=== PATIENT | female | born 2000 | race Caucasian/White ===

== ENCOUNTER 2023-12-16 05:01 | Emergency (ER) | payer OTHER, SELFPAY ==
[2023-12-16 05:08] VITALS: BP 115/83
--- NOTE | 2023-12-16 05:58 | ED.SKININJ ---
HPI-Injury
<Anne Kaminski DO - Last Filed: 01/30/24 10:45>
General
Chief Complaint: Bite
Time Seen by Provider: 12/16/23 05:48
History of Present Illness-Injury
Initial Injury comments:
23-year-old female without significant past medical history presenting to the emergency department with concern of multiple bee stings. Patient reports yesterday she was stung by about 15 days, bilateral ears, upper back, right arm, lower back.
She was initially seen in urgent care after the event, was given Benadryl and stingers were removed. She felt a little bit better, however when she got home, started to feel nauseous and had a throbbing pain which prompted her to come to the
hospital tonight. She took Claritin without relief. Denies any feeling of throat closure or difficulty breathing. Denies any chest pain. Denies any history of allergic reactions in the past. She has never had a bee sting in the past. Denies
additional acute medical complaints
Phy Exam
<Anne Kaminski DO - Last Filed: 01/30/24 10:45>
Physical Exam
Physical Exam:
General: Well-appearing, no clinical signs of dehydration, nontoxic and in no acute distress
HEENT: protecting airway, no oropharyngeal swelling, no stridor
Neck: appears supple
CV: Normal heart rate, regular rhythm, no evidence of cyanosis
Resp: No accessory muscle use, no increased work of breathing, lungs clear to auscultation bilaterally
Abd: Soft and non-distended, no tenderness to palpation, normal bowel sounds
Extremities: No deformities, no swelling
Neuro: alert, no focal neurologic deficit
: deferred
Rectal: deferred
Psych: Normal affect
Skin: Intact, no systemic rash. Erythema and irritation to bilateral ears particularly posteriorly. Will type erythema to scattered areas of the upper back, low back, right upper extremity at the bicipital region.
Course
<Anne Kaminski DO - Last Filed: 01/30/24 10:45>
Orders/Labs/Results
Orders:
Orders
12/16/23 06:16
Ketorolac [Toradol] 15 mg IM NOW STA
Ondansetron HCl [Zofran] 4 mg PO NOW STA
Vital Signs
Initial and Last Documented VS:
Initial Vital Signs
Temp Pulse Resp BP Pulse Ox
99.0 F 105 16 115/83 100
12/16/23 05:08 12/16/23 05:08 12/16/23 05:08 12/16/23 05:08 12/16/23 05:08
Last Documented Vital Signs
Temp Pulse Resp BP Pulse Ox
99.0 F 80 16 115/78 98
12/16/23 05:08 12/16/23 06:51 12/16/23 06:51 12/16/23 06:51 12/16/23 06:51
<ST DuyenPA - Last Filed: 12/20/23 05:10>
Orders/Labs/Results
Orders:
Orders
12/16/23 06:16
Ketorolac [Toradol] 15 mg IM NOW STA
Ondansetron HCl [Zofran] 4 mg PO NOW STA
Vital Signs
Initial and Last Documented VS:
Initial Vital Signs
Temp Pulse Resp BP Pulse Ox
99.0 F 105 16 115/83 100
12/16/23 05:08 12/16/23 05:08 12/16/23 05:08 12/16/23 05:08 12/16/23 05:08
Last Documented Vital Signs
Temp Pulse Resp BP Pulse Ox
99.0 F 80 16 115/78 98
12/16/23 05:08 12/16/23 06:51 12/16/23 06:51 12/16/23 06:51 12/16/23 06:51
<Anne Kaminski, - Last Filed: 01/30/24 10:45>
MDM/Problems Addressed
MDM/Problems Addressed:
23-year-old female without past medical history presenting to the emergency department for pain and irritation after multiple bee stings. Vital signs on arrival are significant for mild tachycardia.
On exam, patient is well-appearing, nontoxic. She is in no acute respiratory distress. No clinical signs of anaphylaxis without any respiratory symptoms or GI symptoms. No systemic rash. Suspect localized reaction and discomfort from bee stings.
Patient is concerned that she will have an anaphylactic reaction from the bee stings. Did addictions counselor assistant patient that this is unlikely, however explained that I will prescribe her an EpiPen for any future bee sting, however cautioned to only use if
respiratory symptoms develop. For discomfort in the emergency department, will administer Toradol and Zofran. Otherwise feel stable for discharge with continued outpatient supportive therapy. Will prescribe Medrol Dosepak and ibuprofen. Advised
continued outpatient follow-up. Return precautions discussed and patient verbalized understanding
<Anne Kaminski DO - Last Filed: 01/30/24 10:45>
*Critical Care Note
Total Time (30-74mins, 75-104mins- exclusive of procedures): Not Applicable
ED Attending Note
<CELSA Geller - Last Filed: 12/20/23 05:10>
-
Portions of this chart may have been created with voice recognition software.� Occasional wrong word or��sound alike� substitutions may have occurred due to the inherent limitations of voice recognition software.
Discharge Plan
Departure
Patient Disposition: Home (Routine Discharge)
Date of Disposition: 12/16/23
Time of Disposition: 06:37
Patient with high blood pressure during this ER visit?: No
Condition: Good
Discharge Problem:
Bee sting reaction
Instructions: Insect Bites and Stings (DC)
Prescriptions:
No Action
Algopyrin Favio tablet
500 mg PO DAILYPRN PRN (Reason: fever)
Patient Comments:
01/25/2024: Metamizol-Natrium. Pt recieved while over in [place]
Ambroxol-Hidroklorid tablet
30 mg PO TID
Patient Comments:
01/25/2024: Pt recieved while over in [place]
doxycycline hyclate 100 mg Capsule
100 mg PO Q12 Qty: 7 0RF
benzonatate 100 mg Capsule
200 mg PO TIDPRN PRN (Reason: cough) Qty: 20 0RF
guaifenesin 600 mg Tablet Extended Release 12hr
600 mg PO Q12 Qty: 20 0RF
cefuroxime axetil 500 mg tablet
500 mg PO BID Qty: 7 0RF
Activity Restrictions/Additional Instructions:
You were seen in the emergency department for bee stings
Please follow-up closely with your primary care physician.
Return to the emergency department for any worsening of your symptoms, or any development of chest pain, difficulty breathing, abdominal pain with persistent vomiting and inability to tolerate food or liquid by mouth (concern for dehydration),
weakness, headache or confusion, fever greater than 100.4, or any additional symptoms that are concerning to you.
Thank you for choosing [facility].
Interventions
Interventions:
*Risk Screen - Suicide Last Done: 12/16/23 05:08
*General Assessment Last Done: 12/16/23 05:08
*Neglect/Abuse Screening Last Done: 12/16/23 05:08
ED- Fall Risk Assessment Last Done: 12/16/23 05:08
*ED COVID-19 Vaccine History Last Done: 12/16/23 05:08
*Nursing Disposition Last Done: 12/16/23 06:53
ED-Skin Assessment Last Done: 12/16/23 06:51
Discharge Date and Time
Discharge Date/Time: 12/16/23 06:53
Print Language: DUTCH
[2023-12-16] MEDS: TORADOL 15 MG IM (06:22)
[2023-12-16] MEDS: ZOFRAN 4 MG PO (06:23)
[2023-12-16 06:51] VITALS: BP 115/78
== END 2023-12-16 06:53 | disposition home or self-care (01) ==
LOC: EMR 05:01
PROVIDERS: EMERGENCY PHYSICIAN Student in an Organized Health Care Education/Training Program; FAMILY PHYSICIAN Nurse Practitioner Family
DX: T63.441A Toxic effect of venom of bees, accidental (unintentional), initial encounter (principal); Y92.9 Unspecified place or not applicable
CPT/HCPCS: 99282; 96372

== ENCOUNTER 2024-01-25 23:20 | Observation (INO) | payer OTHER, SELFPAY ==
[2024-01-25 19:31] VITALS: BP 110/81
[2024-01-25 19:59] LABS: % Basophils 0.2 % (0-2); % Eosinophils 1.4 % (0-6); % Immature Granulocytes 0.4 % (0-0.5); % Lymphocytes 12.1 % (20.5-51.1); % Monocytes 7.2 % (1.7-9.3); % Neutrophils 78.7 % (42.2-75.2); Absolute Eosinophils 0.1 10^3/uL (0-0.7); Absolute Lymphocytes 0.7 10^3/uL (1.2-3.4); Absolute Monocytes 0.4 10^3/uL (0.1-0.6); Absolute Neutrophils 4.5 10^3/uL (1.4-6.5); Hematocrit 31.7 % (37.0-47.0); Mean Corp Hgb Conc. 34.7 g/dL (33.0-37.0); Mean Corpuscular Hgb 29.3 pg (27.0-31.0); Mean Corpuscular Volume 84.5 fL (81.0-99.0); Mean Platelet Volume 9.3 fL (7.4-10.4); Nucleated Red Blood Cells % 0 %; Platelet Count 286 10^3/uL (130-400); Red Blood Cell Count 3.75 10^6/uL (4.20-5.40); White Blood Cell Count 5.7 10^3/uL (4.8-10.8)
[2024-01-25 20:09] LABS: HCG, Serum Qualitative Screen Negative
[2024-01-25 20:10] LABS: Urine Albumin Negative (Neg - Trace); Urine Bilirubin Negative (Negative); Urine Character Clear (Clear); Urine Color Yellow; Urine Glucose Negative (Negative); Urine Ketone Negative (Negative); Urine Leukocyte Negative (Negative); Urine Nitrite Negative (Negative); Urine Occult Blood 2+ (Negative); Urine Specific Gravity 1.015 (<1.030); Urine Urobilinogen Negative (Neg - 1+)
[2024-01-25 20:12] LABS: Lactic Acid 0.8 mmol/L (0.7-2.0)
[2024-01-25 20:16] VITALS: BMI 20.5
[2024-01-25 20:19] LABS: COVID-19 Antigen Negative (Negative)
[2024-01-25 20:20] VITALS: BP 107/68
[2024-01-25 20:20] LABS: ALT (SGPT) 113 U/L (0-35); AST (SGOT) 76 U/L (14-36); Albumin 4.3 g/dl (3.5-5.0); Alkaline Phosphatase 88 U/L (38-126); Blood Urea Nitrogen 8 mg/dl (7-17); Calcium 8.7 mg/dl (8.4-10.2); Carbon Dioxide 26 mmol/L (22-30); Chloride 99 mmol/L (98-107); Estimated Creatinine Clearance 98 ml/min; Glucose 103 mg/dl (70-99); Potassium 3.7 mmol/L (3.5-5.1); Sodium 142 mmol/L (135-145); Total Bilirubin 0.6 mg/dl (0.2-1.3); Total Protein 7.2 g/dl (6.3-8.2); eGFR > 60.00
[2024-01-25 20:26] LABS: Urine Mucus Moderate; Urine Squamous Cell >30 /LPF (Few)
[2024-01-25 20:27] LABS: Urine Bacteria Few (Negative)
--- NOTE | 2024-01-25 20:45 | ED.GENMED ---
History of Present Illness
General
Chief Complaint: Fever
Time Seen by Provider: 01/25/24 20:10
History of Present Illness
History of Present Illness:
The patient presents to the emergency department with cough and fever. Symptoms started about 10 days ago. Notes cough congestion fever lack of appetite. Was recently traveling and returned today from a trip to [place] where she went to [place] at
[facility]. Denies any bug bites or rashes. Notes that she traveled on a bus occasions. Denies abdominal pain or diarrhea. No known sick contacts. Patient was started on cefuroxime while abroad but stayed on improving her symptoms. Notes
productive cough with green mucus.
Phy Exam
Physical Exam
Physical Exam:
GENERAL APPEARANCE: NAD, well developed/ well nourished
EYES lids/conjunctiva normal
EARS/NOSE/THROAT Mucous membranes moist, uvula midline without oral pharyngeal erythema, exudate or swelling
HEAD/NECK normocephalic atraumatic, neck is supple.
RESPIRATORY respiratory effort normal, speaks in full sentences, no accessory muscle use. Lungs clear to auscultation without rhonchi, wheezes, rales
CARDIAC Regular rate and rhythm, no edema.
ABDOMINAL Soft, ND/NT. No pulsatile masses on exam, rebound tenderness,
MUSCLES/EXTREMITIES No abnormal range of motion, no swelling.
SKIN Warm, pink and dry. No rashes
NEUROLOGICAL Speech is clear and appropriate. Normal level of consciousness. 5/5 strength in all extremities.
PSYCH Normal mood and affect. Judgement/competence is appropriate
Sepsis
Sepsis Screening
Sepsis Assessment: Sepsis
Sepsis Screen
Sepsis Screen: Sepsis
Date: 01/25/24
Time: 22:55
Course
Orders/Labs/Results
Orders:
Orders
01/25/24 19:38
Electrocardiogram (*1) Urgent
Reason for Study: Other
Other Reason for Exam: Possible Sepsis
Cardiac Monitoring- Treatment ONCE
EKG- Treatment ONCE
IV Insert/Care/Rem.- Treatment PRN
Straight cath- Treatment ONCE
CR Chest - 2 Views Urgent
Comment:
Reason For Exam: suspected infection
O2 Therapy [RESP] Urgent
Titrate/Wean O2 to maintain O2 sat greater than (%): 93
Special Instructions: TO MAINTAIN CONTINUOUS O2 SATS > OR = 93%
Pulse Ox/cont/shift [RESP] Urgent
Quantity: 1
Special Instructions: CONTINUOUS
01/25/24 19:43
Test Result ONCE
01/25/24 19:44
Urinalysis Reflex To Culture Urgent
Date Specimen was Collected: 01/25/24
Time Specimen was Collected: 19:38
Urine Microscopic Reflex Cult Urgent
01/25/24 19:46
COVID-19 Antigen Urgent
Source: Nasal Swab
Influenza A+B Rapid Molecular Urgent
ANAY Source: Nasal Swab
Specimen Description:
01/25/24 19:50
Complete Blood Count/With Diff Urgent
Comprehensive Metabolic Panel Urgent
HCG, Serum Qualitative Screen Urgent
Comment: .
Lactic Acid Q4H
Comment: ON ICE, CANCEL 2ND ORDER IF FIRST LACTIC ACID LEVEL <2
Lipase Urgent
Comment: ADD ON
01/25/24 20:35
Ketorolac [Toradol] 15 mg .ROUTE .STK-MED ONE
01/25/24 20:36
Acetaminophen [Tylenol] 650 mg .ROUTE .STK-MED ONE
01/25/24 20:37
Ketorolac [Toradol] 15 mg IV NOW STA
01/25/24 20:39
Add On- LAB Urgent
Tests Added?: lipase
01/25/24 20:42
0.9% Sodium Chloride 1000 ml [Nss] 1,000 ml IV BOLUS
Ketorolac [Toradol] 15 mg IM NOW STA
01/25/24 20:47
Acetaminophen [Tylenol] 650 mg PO NOW STA
01/25/24 22:14
CefTRIAXone [Rocephin] 1,000 mg IV NOW STA
01/25/24 22:31
Doxycycline Hyclate [Vibramycin] 100 mg 0.9% Sodium Chloride 250 ml [Nss] 250 ml IV NOW
01/25/24 22:36
Blood Culture Urgent
ANAY Source: Blood/Venous
Specimen Description:
Abnormal Lab Results
01/25/24 01/25/24
19:44 19:50
RBC 3.75 L 10^6/uL
(4.20-5.40)
Hgb 11.0 L g/dL
(12.0-16.0)
Hct 31.7 L %
(37.0-47.0)
Absolute Lymphs (auto) 0.7 L 10^3/uL
(1.2-3.4)
Neutrophils % 78.7 H %
(42.2-75.2)
Lymphocytes % 12.1 L %
(20.5-51.1)
Glucose 103 H mg/dl
(70-99)
AST 76 H U/L
(14-36)
ALT 113 H U/L
(0-35)
Ur Occult Blood Reflex 2+ A
(Negative)
Urine RBC 7-10 A /HPF
(0-2)
Urine Bacteria (Reflex) Few A
(Negative)
01/25/24 19:50
01/25/24 19:50
Vital Signs
Initial and Last Documented VS:
Initial Vital Signs
Temp Pulse Resp BP Pulse Ox
100.1 F 108 20 110/81 98
01/25/24 19:31 01/25/24 19:31 01/25/24 19:31 01/25/24 19:31 01/25/24 19:31
Last Documented Vital Signs
Temp Pulse Resp BP Pulse Ox
99.0 F 86 20 99/64 95
01/25/24 22:30 01/25/24 22:30 01/25/24 22:30 01/25/24 22:00 01/25/24 22:30
*Critical Care Note
Total Time (30-74mins, 75-104mins- exclusive of procedures): Not Applicable
ED Attending Note
ED Attending Note
ED Attending Note:
Patient is very well-appearing without focal evidence of bacterial infection on exam. She is saturating 96% on room air and is in no respiratory distress. Lung sounds are clear bilaterally. Likely to be a viral infection given her travel by bus
with close contact to many other tourists. She was not in a location with concern for tropical or hemorrhagic fevers or malaria.
X-ray showing lingular pneumonia. Given failed outpatient treatment, will give IV antibiotics and admit to the hospitalist.
-
Portions of this chart may have been created with voice recognition software.� Occasional wrong word or��sound alike� substitutions may have occurred due to the inherent limitations of voice recognition software.
Discharge Plan
Departure
Patient Disposition: Admit
Date of Disposition: 01/25/24
Time of Disposition: :19
Admit to: Med/Surg
Presentation/result/management discussed w/ accepting MD/DO: Hospitalist
Discharge Problem:
Pneumonia
Prescriptions:
No Action
Algopyrin Favio tablet
500 mg PO DAILYPRN PRN (Reason: fever)
Patient Comments:
01/25/2024: Metamizol-Natrium. Pt recieved while over in [place]
Ambroxol-Hidroklorid tablet
30 mg PO TID
Patient Comments:
01/25/2024: Pt recieved while over in [place]
cefuroxime axetil 500 mg Tablet
500 mg PO BID
Patient Comments:
01/25/2024: Brand name Zinnat. Pt recieved while over in [place]
Referrals:
UNKNOWN - PT DOES,NOT KNOW [Unknown Provider] -
Interventions
Interventions:
*Risk Screen - Suicide Last Done: 01/25/24 19:31
*General Assessment Last Done: 01/25/24 19:31
ED- Fall Risk Assessment Last Done: 01/25/24 19:31
*ED COVID-19 Vaccine History Last Done: 01/25/24 19:31
ED- Neurological Assessment Last Done: 01/25/24 20:22
ED-Skin Assessment Last Done: 01/25/24 20:25
Discharge Date and Time
Print Language: SURINAMESE
[2024-01-25] MEDS: TORADOL 15 MG IV (20:47)
[2024-01-25] MEDS: TYLENOL 650 MG PO (20:48)
[2024-01-25] MEDS: NSS 1000 IV (20:49)
[2024-01-25 21:00] VITALS: BP 98/63
[2024-01-25 21:11] LABS: Lipase 84 U/L (23-300)
[2024-01-25 22:00] VITALS: BP 99/64
[2024-01-25] MEDS: ROCEPHIN 1000 MG IV (22:37)
--- NOTE | 2024-01-25 22:37 | HPS.HSE ---
Addendum entered and electronically signed by Tavo Tirado DO 01/25/24 23:40:
Patient seen and examined independently. Agree with findings and plan as set forth by Chaya Mata PA-C.
Patient is a 23y F with no significant PMH who presents to ED complaining of fever and cough x 10 days. Symptoms initially developed about 10 days ago while patient was vacationing in [facility]. She presented to the ED there and was prescribed a
Z-pack and cough medication. Her symptoms failed to improve. She returned to the ED 2 additional times while in [place] [facility] and abx were changed to cefuroxime yesterday. Patient continued to feel poorly today and took a direct flight home and
presented immediately to the ED here.
Ass:
Lingular Pneumonia
Sepsis secondary to the above
Plan:
Admit for further evaluation and treatment.
Patient presents with fever, tachycardia and tachypnea and CXR showing lingular pneumonia.
Change abx to ceftriaxone and doxycycline.
Follow for clinical improvement.
Original Note:
Family Physician
-
Family Physician: TAWANNA Manley
Chief Complaint
-
Cough and Fever
History of Present Illness
Patient is a 23 yo female presents with cough and fever. She was travelling in [place] and [facility] and just arrived back in the today. She reports that 10 days ago when she was in [place] [facility] [place] she developed a fever as her initial symptom, and the
fevers have since continued daily. A couple days after onset of fever she developed a productive cough with green mucus, as well as nausea and anorexia. She describes coughing fits where she would develop some shortness of breath from the strong
coughing, but otherwise she has not been short of breath. She took a 5-day course of azithromycin that was prescribed to her in [place] [facility] with no improvement. She then went to the ER in [facility], was given a dose of Rocephin and discharged with
cefuroxime. This is her second day of taking the cefuroxime. She denies sore throat, chest pain, palpitations, abdominal pain, vomiting, or diarrhea.
Medical History
Past Medical History
Past Medical History: Reports Other
Additional Past Medical History:
Gilbert's Syndrome
Past Surgical History: Reports None
Social History
Tobacco: Non-smoker
Alcohol: None
Drug: None
Family History
Family History: Not pertinent
Allergies / Home Medications
Allergies reflects when Allergies were last updated in [employer].
Home Medications with original date entered in [employer]
Allergy/Medication List:
Allergies
Allergy/AdvReac Type Severity Reaction Status Date / Time
No Known Allergies Allergy Verified 01/25/24 19:30
Home Medications
Algopyrin Favio 500 mg PO DAILYPRN PRN fever 01/25/24
Ambroxol-Hidroklorid 30 mg PO TID 01/25/24
cefuroxime axetil 500 mg tablet 500 mg PO BID 01/25/24
Review of Systems
-
A 12 point ROS was completed and negative except as noted: Yes
Constitutional: Reports Fever and Chills
Respiratory: Reports Cough and Trouble Breathing
Cardiac: Denies Chest Pain or Palpitations
Physical Exam
Vital Signs
Vital Signs
Temp Pulse Resp BP Pulse Ox
101.8 F H 81 18 99/64 97
01/25/24 20:18 01/25/24 22:00 01/25/24 22:00 01/25/24 22:00 01/25/24 22:00
Physical Exam
General: Comfortable and Conversant
HEENT: Anicteric and Moist mucous membranes
Respiratory: Other (Coarse breath sounds bilaterally)
Cardiac: S1/S2 and Regular Rhythm
GI: Soft and Non Tender
Rectal: Deferred by Provider
Musculoskeletal: No Clubbing, No Cyanosis and No Edema
Skin: Warm and Dry
Neuro: Awake, Alert, Oriented and Nonfocal/grossly intact
Psych: Calm
Laboratory Results
-
01/25/24 19:50
01/25/24 19:50
Laboratory Results
Lactic Acid 0.8 mmol/L (0.7-2.0) 01/25/24 19:50
Lactic Acid Cancelled 01/25/24:50
Total Bilirubin 0.6 mg/dl (0.2-1.3) 01/25/24 19:50
AST 76 U/L (14-36) H 01/25/24 19:50
ALT 113 U/L (0-35) H 01/25/24 19:50
Alkaline Phosphatase 88 U/L (38-126) 01/25/24 19:50
Lipase 84 U/L (23-300) 01/25/24 19:50
Data Reviewed
-
Diagnostic Radiology: Report Reviewed by me
Lab Data: Labs Reviewed by me
Impression/Plan
-
Pneumonia, community-acquired
-Failed outpatient azithromycin
-Continue ceftriaxone and doxycycline
-Continue Mucinex
DVT proph: Lovenox
Code Status: Full Code
[2024-01-25] MEDS: VIBRAMYCIN 260 MG IV (22:46)
[2024-01-26 00:27] VITALS: BP 91/56; BMI 20.7
[2024-01-26] MEDS: STERILE WATER FOR INJECTION IV (01:01)
[2024-01-26] MEDS: NSS 1000 IV ×3 (01:02→20:26)
[2024-01-26] MEDS: TESSALON PERLES 200 MG PO ×2 (01:03→05:07)
--- NOTE | 2024-01-26 05:03 | PTCARENOTE ---
ax3 bp wnl temp 99.9- Tylenol given see mar- fluids running- sputum and urines sent- 95% on room air- lungs are clear- harsh cough with pleuritic chest pain
[2024-01-26] MEDS: TYLENOL 650 MG PO ×2 (05:04→14:19)
[2024-01-26 05:35] VITALS: BMI 20.7
[2024-01-26 06:00] VITALS: BMI 20.7
[2024-01-26 06:23] LABS: Hemoglobin 9.6 g/dL (12.0-16.0); Mean Corp Hgb Conc. 34.3 g/dL (33.0-37.0); Mean Corpuscular Volume 84.6 fL (81.0-99.0); Mean Platelet Volume 9.8 fL (7.4-10.4); Platelet Count 241 10^3/uL (130-400); Red Blood Cell Count 3.31 10^6/uL (4.20-5.40); White Blood Cell Count 4.4 10^3/uL (4.8-10.8)
[2024-01-26 07:30] VITALS: BP 97/60
[2024-01-26 08:04] LABS: % Basophils 0.2 % (0-2); % Eosinophils 2.8 % (0-6); % Immature Granulocytes 0.7 % (0-0.5); % Lymphocytes 17.9 % (20.5-51.1); % Monocytes 7.4 % (1.7-9.3); Absolute Eosinophils 0.1 10^3/uL (0-0.7); Absolute Lymphocytes 0.8 10^3/uL (1.2-3.4); Absolute Monocytes 0.3 10^3/uL (0.1-0.6); Absolute Neutrophils 3.1 10^3/uL (1.4-6.5); Nucleated Red Blood Cells % 0 %
[2024-01-26] MEDS: MUCINEX 600 MG PO ×2 (08:05→20:26)
[2024-01-26] MEDS: VIBRAMYCIN 260 MG IV (09:18)
--- NOTE | 2024-01-26 10:19 | W.PN.HOSP.TC ---
Today's Communication/Plan
-
CT chest
Change to IV doxy
Add IV PRN Zofran
Sputum culture
Consult ID
Assessment / Plan
Assessment / Plan
Physical Exam
General: Comfortable and Conversant
HEENT: Anicteric and Moist mucous membranes
Respiratory: Other (Coarse breath sounds bilaterally)
Cardiac: S1/S2 and Regular Rhythm
GI: Soft and Non Tender
Musculoskeletal: No Clubbing, No Cyanosis and No Edema
Skin: Warm and Dry
Neuro: Awake, Alert, Oriented and Nonfocal/grossly intact
Psych: Calm
Pneumonia, community-acquired
-Failed outpatient azithromycin
she does not feels better, still cough
-Continue ceftriaxone and doxycycline, change to IV doxy because she has nausea
-Continue Mucinex
- consult ID, appreciate input
-Order CT chest due to persistent symptoms
# Elevated liver enzymes will recheck lFT in AM
No jaundice
# Loss of appetite, nausea
Add PRN Zofran
DVT proph: Lovenox
Code Status: Full Code
Total time spent to see the patient, examine the patient on the floor, review data and lab results, discuss treatment plan with patient, nursing staff around 55 minutes
Anticipated Discharge: > 48 hours
Subjective/Interval History
-
Date of Service: January 26, 2024
Still cough but not worse
No sob
No fevers
Objective Data
-
Labs:
Laboratory Results
01/26/24
05:54
WBC 4.4 L
Hgb 9.6 L
Hct 28.0 L
Plt Count 241
Vital Signs:
Vital Signs
Temp Pulse Resp BP Pulse Ox
98.5 F 76 19 97/60 98
01/26/24 07:30 01/26/24 07:30 01/26/24 07:30 01/26/24 07:30 01/26/24 07:30
I&O
01/25/24 01/26/24 01/27/24
06:59 06:59 06:59
Intake Total 1160 / 1160
Output Total 500 / 500
Balance 660 / 660
--- NOTE | 2024-01-26 12:04 | CON.PUL ---
Consultation
Consultation Request
Date/Time Consultation Requested: 01/26/2024 - 1136
Date/Time Consultation Performed: 01/26/2024 - 1201
Requesting Provider: Dr. Samuels
Performing Provider: Dr. Hernandez
Reason for Consultation: Pneumonia/Abnormal CT chest
Medical History
-
Chief Complaint: Cough + fever
History of Present Illness:
23-year-old female non-smoker with a past medical history of scoliosis + Gilbert's syndrome who presents with cough + fever. She had just returned from a trip to [facility] and [place] the [place] on the day of hospital admission. She was traveling to
[facility] as well. 10 days ago when she was in [facility] she developed a fever, and then cough started a few days later with green mucus production. Also nauseous with reduced appetite. She admits having coughing fits but otherwise is not short of
breath. She was prescribed a 5-day course of Zithromax while she was in [facility] with no improvement. She actually went to the ER and hungry and given a dose of Rocephin and discharged with cefuroxime. She was on her second day of cefuroxime when
she came here to [facility]. She denies sore throat, chest pain, vomiting or abdominal pain. In the ER she was afebrile to 100.1 �F, tachycardic to 108, breathing at 20 breaths/min, BP 110/81 and saturating 98% on room air. Labs showed
normal WBC at 5.7, Hb 11, lactate normal at 0.8, AST 76, ALT 113, beta-hCG negative, lipase normal at 84, and urinalysis negative for UTI. She was also COVID-19 negative, as well as flu A/B-. CXR showed moderate lingular pneumonia which was
confirmed on CT chest from today which also showed patchy opacities in the left lower lobe. There was a trace left-sided pleural effusion. Otherwise no pericardial effusion in the right lung appear clear. In the ER she was given Rocephin,
doxycycline, Tylenol + IVF with NS 0.9% x 1L; she was admitted to the floor for continued care. Pulmonary now consulted for additional management/recommendations.
When I saw the patient she was resting in bed in no acute distress on room air. She is still coughing up green phlegm. No blood seen in cough. Also still short of breath and reduced appetite. She denies chest pain, MONTES, abdominal pain, fevers or
chills.
PMHx: Scoliosis, Gilbert's syndrome
PSHx: Noncontributory
Past Medical History
Past Medical History: Other (Above as per HPI)
Past Surgical History: Other (Above as per HPI)
Social History
Tobacco: Non-smoker
Alcohol: Occasional (Rare)
Drug: None
Employment: Employed
Family History
Family History: Diabetes (Maternal grandmother)
Allergies / Home Medications
Allergies
Allergy/AdvReac Type Severity Reaction Status Date / Time
No Known Allergies Allergy Verified 01/25/24 19:30
Home Medications
�Medication �Instructions �Recorded �Confirmed �Last Taken �Type
Algopyrin Favio 500 mg PO DAILYPRN PRN fever 01/25/24 01/25/24 Unknown History
Ambroxol-Hidroklorid 30 mg PO TID Cough 01/25/24 01/25/24 Unknown History
cefuroxime axetil 500 mg tablet 500 mg PO BID Infection 01/25/24 01/25/24 Unknown History
Review of Systems
-
History Source: Patient
All other systems: Negative unless noted
Vitals / Labs / Diagnostic Testing
Vital Signs
Temp Pulse Resp BP Pulse Ox
99.1 F 76 19 97/60 98
01/26/24 11:30 01/26/24 07:30 01/26/24 07:30 01/26/24 07:30 01/26/24 07:30
Lab Data
01/26/24 05:54
01/25/24 19:50
Microbiology
01/26/24 00:46 Sputum Gram Stain - Preliminary
01/25/24 19:44 Urine Legionella Urinary Antigen - Final
Negative for Legionella pneumophila Serogroup 1 antigen.
A negative result does not rule out the possiblity of
Legionella infection due to other serogroups or species of
Legionella. Clinical correlation is recommended.
01/25/24 19:44 Urine Streptococcus pneumoniae Antigen (M - Final
Negative for Streptococcus pneumoniae antigen.
A negative result does not exclude infection with
Streptococcus pneumoniae. Clinical correlation is
recommended.
01/25/24 19:46 Nasal Swab Influenza Types A & B (JETHRO) - Final
Negative for Influenza A & B, NAAT
Negative results must be combined with clinical observations
and patient history.
Nucleic Acid Amplification test (NAAT)performed on the
[employer] platform.
Diagnostic Testing:
Physical Exam
-
HEENT: Normocephalic and Anicteric
Cardiovascular: S1/S2 and Peripheral Edema (negative)
Respiratory: Wheeze (negative), Rales ([place] in the posterior left midlung region), Rhonchi (negative) and Non-Labored Respirations
GI: Soft, Non Distended, Non Tender and Normal Bowel Sounds
Neurology: AO x 3 and Tremors (negative)
Skin: Warm and Dry
General: Respiratory Distress (negative), Comfortable, Fever (negative) and Chills (negative)
Assessment
-
Assessment: 23-year-old female non-smoker with a PMHx of scoliosis + Gilbert's syndrome who presents with cough + fever. She developed symptoms while overseas in [facility], with symptoms started about 10 days ago with fever and then cough with green
phlegm production. She went to an ER in [facility] and was given antibiotics and discharged home with cefuroxime which she was on her second day when she arrived here to [place]. She has been afebrile here since hospital admission and imaging is
consistent with a lingular pneumonia as well as patchy opacities in the left lower lobe. She is being managed on the floor on antibiotics and now pulmonary consulted for additional recommendations.
Chronic conditions [employer]: Scoliosis, Gilbert's syndrome
Impression:
#Community-acquired pneumonia involving left lung (lingula + medial left lower lobe)
#Acute cough due to above
#Acute anemia
#Transaminitis with AST: 76 + ALT: 113
Plan:
- Continue with broad-spectrum antibiotics and plan for at least 7 days assuming she continues to clinically improve and remains afebrile for 2 days prior to stopping antibiotics
- Currently on Rocephin + doxycycline (both started 01/25/2024)
- Mucolytics with Mucinex
- She will need repeat CT chest in 4-6 weeks to follow-up pneumonia resolution
- Follow-up infectious workup including blood + sputum cultures (NGTD)
- Urine antigens for Legionella + strep pneumonia were both negative
- Currently on IVF maintenance fluids with NS 0.9% @ 100cc/hr --> DC this once she is tolerating PO diet and eating >50% of meals
- Maintain SpO2 >90-94% with supplemental O2 as needed
- Incentive spirometer encouraged
- Monitor Hb and transfuse if needed to keep Hb>7, plt>20k
- Trend LFTs
- Replete electrolytes with K>4, Mg>2
- Maintain euglycemia with goal BG >100 and <180
- prn nebulized bronchodilators - not currently bronchospastic
- DVT ppx: LMWH
Pulmonary service will continue to follow along. Outpatient office follow-up will also be arranged.
Data:
CT chest without contrast 01/26/2024: Findings compatible with pneumonia involving the lingula of the left upper lobe and the left lower lobe; Minimal left pleural effusion.
Total time spent today was 55 minutes for this encounter. Time includes reviewing laboratory test/imaging results, reviewing pertinent medical records, obtaining and reviewing medical history, performing an appropriate exam, ordering medications,
tests and procedures. Time also includes documentation of this encounter, coordinating patient care and communicating with other healthcare professionals. Total time does not include separately billed tests performed on this date of service.
--- NOTE | 2024-01-26 13:21 | CON.ID ---
Consultation
-
Date/Time Consultation Requested: 01/26/2024 0647
Date/Time Consultation Performed: 01/26/2024 1316
Requesting Provider: Dr. Samuels
Performing Provider: Dr. Greenberg
Reason for Consultation: Pneumonia
Chief Complaint / Past History
History of Present Illness
June Kirby is a 23-year-old female being evaluated at the request of Dr. Samuels in regards to pneumonia. History is obtained from chart review, along with patient interview.
The patient has a past medical history significant only for Gilberet's syndrome. She reports she was in her usual state of health, and travel to [place] on January 06 to visit family. She was in [place] until 01/11, at which time she took a an
18-hour bus ride to [facility] to also visit family. The first 2 days and hungry were spent with significant physical activity, which included hiking. On approximately third day of her visit, she developed a fever. She saw a physician there and was
started on Azithromycin. Despite several days of antibiotic she continued to feel unwell, with temperatures up to 101 degrees. She again was seen by a physician and at this point was transitioned to cefuroxime. Thereafter, she developed a cough.
Despite antibiotic therapy she continued to feel unwell and traveled back to the [place] yesterday at which point she came to the hospital for further evaluation.
She notes green sputum. She denies any chest pain but does admit to shortness of breath. She notes only 1 episode of vomiting, but has had some occasional nausea and poor appetite. She notes intermittent coughing fits. She denies any headache.
She notes no sick contacts.
Past History
Additional Past Medical History:
Gilberet's syndrome
Past Surgical History: None
Allergy History:
No Known Allergies Allergy (Verified 01/25/24 19:30)
Medications Reviewed: Yes
Current Antibiotics:
Ceftriaxone 1 g IV every 24 hours
Doxycycline 100 mg IV every 12 hours
Social History
Tobacco: Non-Smoker
Alcohol: None
Drug: None
Personal: Single
Living: With Family
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
Family History
Family History: Not Pertinent
Review of Systems
Vital Signs
Temp Pulse Resp BP Pulse Ox
100.2 F 76 19 97/60 99
01/26/24 12:34 01/26/24 07:30 01/26/24 07:30 01/26/24 07:30 01/26/24 12:34
Physical Exam
Physical Exam
Constitutional: No Acute Distress, Well Developed, Comfortable and Non-toxic
Head: Normocephalic
Eyes: Pupils Equal, Pupils Round, No Conjunctival Hemorrhage and Sclera Anicteric
Oral: No Thrush and No Ulcers
Cardiovascular: Regular Rate and S1/S2; Negative S3/S4 or Murmur
Pulmonary: Clear; Negative Wheezes or Rales
Gastrointestinal: Soft, Non Tender, Non Distended and Normal Bowel Sounds
Genito-Urinary: Negative Nagel or CVA Tenderness
Extremities: Negative Edema, Cyanosis, Erythema, Splinter Hemorrhage or Venous Insufficiency
Musculoskeletal: Negative Joint Swelling or Joint Effusion
Skin: Warm and Dry; Negative Rash or Jaundice
Neurological: Awake and Alert
Psychological: Calm
.
Lab / Diagnostic Study Results
01/26/24 05:54
01/25/24 19:50
Abs Immat Gran (auto) 0.0 10^3/uL (0-0.05) 01/26/24 05:54
Absolute Neuts (auto) 3.1 10^3/uL (1.4-6.5) 01/26/24 05:54
Absolute Lymphs (auto) 0.8 10^3/uL (1.2-3.4) L 01/26/24 05:54
Absolute Monos (auto) 0.3 10^3/uL (0.1-0.6) 01/26/24 05:54
Absolute Basos (auto) 0.0 10^3/uL (0-0.2) 01/26/24 05:54
Immature Gran % 0.7 % (0-0.5) H 01/26/24 05:54
Neutrophils % 71.0 % (42.2-75.2) 01/26/24 05:54
Lymphocytes % 17.9 % (20.5-51.1) L 01/26/24 05:54
Monocytes % 7.4 % (1.7-9.3) 01/26/24 05:54
Eosinophils % 2.8 % (0-6) 01/26/24 05:54
Basophils % 0.2 % (0-2) 01/26/24 05:54
Lactic Acid 0.8 mmol/L (0.7-2.0) 01/25/24 19:50
Lactic Acid Cancelled 01/25/24 19:50
Ur Squamous Epith Cells >30 /LPF (Few) 01/25/24 19:44
Microbiology Results
Micro:
01/26/24 00:46 Respiratory Culture - Pending
Sputum Gram Stain - Preliminary
01/25/24 19:44 Legionella Urinary Antigen - Final
Urine Negative for Legionella pneumophila Serogroup 1 antigen.
A negative result does not rule out the possiblity of
Legionella infection due to other serogroups or species of
Legionella. Clinical correlation is recommended.
Streptococcus pneumoniae Antigen (M - Final
Negative for Streptococcus pneumoniae antigen.
A negative result does not exclude infection with
Streptococcus pneumoniae. Clinical correlation is
recommended.
01/25/24 22:36 Blood Culture - Pending
Blood/Venous
01/25/24 19:46 Influenza Types A & B (JETHRO) - Final
Nasal Swab Negative for Influenza A & B, NAAT
Negative results must be combined with clinical observations
and patient history.
Nucleic Acid Amplification test (NAAT)performed on the
[employer] platform.
Imaging:
01/26/2024 CT chest without contrast: There is confluent parenchymal airspace opacity within the lingula of the left upper lobe, with air bronchograms. Additional patchy parenchymal opacities slightly more superiorly within the left upper lobe.
Minimal posterior left pleural effusion noted. Right lung appears clear. No pericardial effusion. Please see full dictation for additional detail.
01/25/2024 CXR (2 view): Moderate lingular pneumonia noted. Please see full dictation for additional detail.
Assessment / Plan
Left lingular pneumonia
Fever
Recommendations:
Continue with ceftriaxone and doxycycline. Doxycycline can be transition to the oral route.
Sputum culture has been obtained, and currently awaiting results.
Monitor white count and temperature curve.
Further recommendations as additional data is returned.
[2024-01-26 16:00] VITALS: BP 103/61
--- NOTE | 2024-01-26 16:04 | CM ---
Reviewed chart, met with patient and her mother who was at bedside to obtain information for assessment. Patient stated that she lives with her mother in a two story townhouse with 2 steps to enter. Patient stated that she is independent with all of
her ADLs, personal care, dressing and bathing. 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 She drives and can get to her appointments and do all of her shopping.
Patient has never had VN services.
She has no DME.
She has never been to a SNF.
Patient has a prescription plan and uses, [facility] for all of her medications.
Patient's PCP is, Teodoro Russell.
Patient stated that she would like to return home when stable.
Plan: Case management will continue to follow and assist with discharge planning. Home with mother.
OBS letter signed and reviewed.
[2024-01-26] MEDS: LOVENOX 40 MG SC (17:31)
[2024-01-26] MEDS: VIBRAMYCIN 100 MG PO (20:26)
[2024-01-26] MEDS: ROCEPHIN 1000 MG IV (21:13)
[2024-01-26] MEDS: STERILE WATER FOR INJECTION 10 ML IV (21:13)
[2024-01-26 23:00] VITALS: BP 110/63
[2024-01-27] MEDS: NSS 1000 IV ×2 (05:57→15:36)
[2024-01-27 07:00] VITALS: BP 116/61
[2024-01-27 07:22] LABS: Hematocrit 31.3 % (37.0-47.0); Hemoglobin 10.8 g/dL (12.0-16.0); Mean Corp Hgb Conc. 34.5 g/dL (33.0-37.0); Mean Corpuscular Hgb 30.3 pg (27.0-31.0); Mean Corpuscular Volume 87.7 fL (81.0-99.0); Mean Platelet Volume 9.3 fL (7.4-10.4); Platelet Count 302 10^3/uL (130-400); Red Blood Cell Count 3.57 10^6/uL (4.20-5.40); Red Cell Dist. Width 11.9 % (11.5-14.5); White Blood Cell Count 3.4 10^3/uL (4.8-10.8)
[2024-01-27 07:24] LABS: ALT (SGPT) 73 U/L (0-35); AST (SGOT) 46 U/L (14-36); Albumin 3.4 g/dl (3.5-5.0); Alkaline Phosphatase 80 U/L (38-126); Blood Urea Nitrogen 6 mg/dl (7-17); Calcium 8.9 mg/dl (8.4-10.2); Carbon Dioxide 26 mmol/L (22-30); Chloride 103 mmol/L (98-107); Direct Bilirubin 0.2 mg/dl (0.0-0.4); Estimated Creatinine Clearance 113 ml/min; Glucose 94 mg/dl (70-99); Magnesium 1.9 mg/dl (1.6-2.3); Phosphorus 3.5 mg/dl (2.5-4.5); Potassium 4.4 mmol/L (3.5-5.1); Sodium 140 mmol/L (135-145); Total Bilirubin 0.4 mg/dl (0.2-1.3); eGFR > 60.00
[2024-01-27] MEDS: VIBRAMYCIN 100 MG PO ×2 (07:52→22:15)
[2024-01-27] MEDS: MUCINEX 600 MG PO ×2 (07:52→22:15)
--- NOTE | 2024-01-27 09:51 | W.PN.HOSP.TC ---
Today's Communication/Plan
-
c/w Rocephin and doxycycline
f/w sputum culture
PRN cough medicine
PRN Tylenol
Assessment / Plan
Assessment / Plan
Physical Exam
General: Comfortable and Conversant
HEENT: Anicteric and Moist mucous membranes
Respiratory: no wheezes or crackles, more air both sides.
Cardiac: S1/S2 and Regular Rhythm
GI: Soft and Non Tender
Musculoskeletal: No Clubbing, No Cyanosis and No Edema
Skin: Warm and Dry
Neuro: Awake, Alert, Oriented and Nonfocal/grossly intact
Psych: Calm
Pneumonia, community-acquired
-Failed outpatient azithromycin
- sputum culture gram positive cocci
blood culture no growth
CT chest c/w pneumonia in the lingula of the left upper lobe and the left lower lobe, small pleural effusion
-Continue ceftriaxone and doxycycline, change to IV doxy because she has nausea
-Continue Mucinex
- consulted pulmonary and ID, appreciate input
# Elevated liver enzymes
LFT are coming down
No jaundice
# Loss of appetite, nausea
Added PRN Zofran
DVT proph: Lovenox
Code Status: Full Code
Total time spent to see the patient, examine the patient on the floor, review data and lab results, discuss treatment plan with patient, consultants, nursing staff around 55 minutes
Anticipated Discharge: 24 - 48 hours
Subjective/Interval History
-
Date of Service: January 27, 2024
She feel betters
less fevers
Objective Data
-
Labs:
Laboratory Results
01/27/24
06:42
WBC 3.4 L
Hgb 10.8 L
Hct 31.3 L
Plt Count 302 D
Sodium 140
Potassium 4.4
Chloride 103
Carbon Dioxide 26
BUN 6 L
Creatinine 0.7
Glucose 94
Calcium 8.9
Total Bilirubin 0.4
AST 46 H
ALT 73 H
Alkaline Phosphatase 80
Vital Signs:
Vital Signs
Temp Pulse Resp BP Pulse Ox
98.9 F 66 18 116/61 98
01/27/24 07:00 01/27/24 07:00 01/27/24 07:00 01/27/24 07:00 01/27/24 07:00
I&O
01/26/24 01/27/24 01/28/24
06:59 06:59 06:59
Intake Total 1160 / 1160 3900 / 3900
Output Total 500 / 500
Balance 660 / 660 3900 / 3900
--- NOTE | 2024-01-27 10:53 | W.PN.PUL.V3 ---
Today's Communication / Plan
-
Antibiotics
Increase activity
Supplemental oxygen as needed
Mucolytic's
Outpatient pulmonary follow-up
Assessment
-
Assessment: 23-year-old female non-smoker with a PMHx of scoliosis + Gilbert's syndrome who presents with cough + fever. She developed symptoms while overseas in [facility], with symptoms started about 10 days ago with fever and then cough with green
phlegm production. She went to an ER in [facility] and was given antibiotics and discharged home with cefuroxime which she was on her second day when she arrived here to [place]. She has been afebrile here since hospital admission and imaging is
consistent with a lingular pneumonia as well as patchy opacities in the left lower lobe. She is being managed on the floor on antibiotics and now pulmonary consulted for additional recommendations.
Chronic conditions [employer]: Scoliosis, Gilbert's syndrome
Impression:
#Community-acquired pneumonia involving left lung (lingula + medial left lower lobe)
#Acute cough due to above
#Acute anemia
#Transaminitis with AST: 76 + ALT: 113
Leukopenia
Plan:
Respiratory status relatively stable
Supplemental oxygen as needed-currently on room air
Nebulizers if needed-currently not bronchospastic
Chest x-ray and CT chest reviewed-consistent with community-acquired pneumonia
Mucolytic's
Antitussives if needed
Cultures reviewed
Urine streptococcal and Legionella antigens negative
Sputum culture-moderate WBCs, few gram-positive cocci and rare gram-positive cocci
Empiric antibiotics
Follow chest x-ray
Monitor leukopenia
Follow hemoglobin
Monitor LFTs
DVT prophylaxis-low molecular weight heparin
Nutrition
Early mobilization
Outpatient pulmonary [id number] need CT chest for-6 weeks to ensure pneumonia resolution
Data:
CT chest without contrast 01/26/2024: Findings compatible with pneumonia involving the lingula of the left upper lobe and the left lower lobe; Minimal left pleural effusion.
Subjective Data
-
Date of Service:
Date of Service: January 27, 2024
Chief Complaint: Pulmonary Follow Up and Dyspnea Follow Up
Subjective:
No complaints of worsening shortness of breath, no chest congestion, minimal cough, mildly yellow, no chest pain, hemoptysis or abdominal pain
Review of Systems
General: Other (Per HPI)
Objective Data
Data Reviewed
Vital Signs / I&O:
Vital Signs
Temp Pulse Resp BP Pulse Ox
98.9 F 66 18 116/61 98
01/27/24 07:00 01/27/24 07:00 01/27/24 07:00 01/27/24 07:00 01/27/24 07:00
Intake and Output
01/26/24 01/27/24 01/28/24
06:59 06:59 06:59
Intake Total 1160 / 1160 3900 / 3900
Output Total 500 / 500
Balance 660 / 660 3900 / 3900
SaO2: 98
Physical Exam
General: Respiratory Distress (n) and Comfortable
HEENT: Normocephalic, Anicteric and Moist Mucous Membranes
Cardiovascular: Regular Rhythm
Respiratory: Wheeze (n), Crackles, Rhonchi (n), Non-Labored Respirations, Accessory Resp Muscle Use (n) and Stridor (n)
GI: Soft, Non Distended and Non Tender
Neurology: Awake, Alert and No Motor Deficits
Skin: Warm, Good Color, Cyanosis, Jaundice (n) and Rash
Labs/Micro/Reports
Lab Data
01/27/24 06:42
01/27/24 06:42
Microbiology
01/25/24 22:36 Blood/Venous Blood Culture - Preliminary
No Growth in 24 hours- Final report to follow
01/26/24 18:33 Sputum Gram Stain - Preliminary
01/26/24 00:46 Sputum Gram Stain - Preliminary
01/25/24 19:44 Urine Legionella Urinary Antigen - Final
Negative for Legionella pneumophila Serogroup 1 antigen.
A negative result does not rule out the possiblity of
Legionella infection due to other serogroups or species of
Legionella. Clinical correlation is recommended.
01/25/24 19:44 Urine Streptococcus pneumoniae Antigen (M - Final
Negative for Streptococcus pneumoniae antigen.
A negative result does not exclude infection with
Streptococcus pneumoniae. Clinical correlation is
recommended.
01/25/24 19:46 Nasal Swab Influenza Types A & B (JETHRO) - Final
Negative for Influenza A & B, NAAT
Negative results must be combined with clinical observations
and patient history.
Nucleic Acid Amplification test (NAAT)performed on the
[employer] platform.
--- NOTE | 2024-01-27 12:16 | W.PN.ID1 ---
Date of Service
Date of Service: January 27, 2024
Today's Communication
At time of discharge, transition to cefuroxime 500mg po bid and doxycycline 100mg po bid through 01/31/24.
Assessment / Plan
Left lingular pneumonia
Fever- resolving
Recommendations:
Continue with ceftriaxone and po doxycycline.
Sputum cultures usual respiratory ainsley
Monitor white count and temperature curve.
At time of discharge, transition to cefuroxime 500mg po bid and doxycycline 100mg po bid through 01/31/24.
Chief Complaint
-: Pneumonia
Subjective / Review of Systems
Not as SOB. + productive cough.
Vital Signs / Physical Exam
Vital Signs
Vital Signs
Temp Pulse Resp BP Pulse Ox
98.7 F 66 18 116/61 98
01/27/24 11:00 01/27/24 07:00 01/27/24 07:00 01/27/24 07:00 01/27/24 10:57
Physical Exam
Constitutional: No Acute Distress and Comfortable
Cardiovascular: Regular Rate and S1/S2
Pulmonary: Negative Wheezes, Rales or Coarse
Gastrointestinal: Soft, Non Tender and Non Distended
Objective Data
Lab Data
Lab Results
01/27/24 06:42
01/27/24 06:42
Estimated Creat Clear 113 ml/min 01/27/24 06:42
Lactic Acid 0.8 mmol/L (0.7-2.0) 01/25/24 19:50
Lactic Acid Cancelled 01/25/24 19:50
Total Bilirubin 0.4 mg/dl (0.2-1.3) 01/27/24 06:42
AST 46 U/L (14-36) H 01/27/24 06:42
ALT 73 U/L (0-35) H 01/27/24 06:42
Alkaline Phosphatase 80 U/L (38-126) 01/27/24 06:42
Most recent labs reviewed.
Micro Results:
01/26/24 18:33 Respiratory Culture - Preliminary
Sputum Usual Respiratory Ainsley
Gram Stain - Preliminary
01/26/24 00:46 Respiratory Culture - Preliminary
Sputum Usual Respiratory Ainsley
Gram Stain - Preliminary
01/25/24 22:36 Blood Culture - Preliminary
Blood/Venous No Growth in 24 hours- Final report to follow
01/25/24 19:44 Legionella Urinary Antigen - Final
Urine Negative for Legionella pneumophila Serogroup 1 antigen.
A negative result does not rule out the possiblity of
Legionella infection due to other serogroups or species of
Legionella. Clinical correlation is recommended.
Streptococcus pneumoniae Antigen (M - Final
Negative for Streptococcus pneumoniae antigen.
A negative result does not exclude infection with
Streptococcus pneumoniae. Clinical correlation is
recommended.
01/25/24 19:46 Influenza Types A & B (JETHRO) - Final
Nasal Swab Negative for Influenza A & B, NAAT
Negative results must be combined with clinical observations
and patient history.
Nucleic Acid Amplification test (NAAT)performed on the
[employer] platform.
Imaging:
01/26/2024 CT chest without contrast: There is confluent parenchymal airspace opacity within the lingula of the left upper lobe, with air bronchograms. Additional patchy parenchymal opacities slightly more superiorly within the left upper lobe.
Minimal posterior left pleural effusion noted. Right lung appears clear. No pericardial effusion. Please see full dictation for additional detail.
01/25/2024 CXR (2 view): Moderate lingular pneumonia noted. Please see full dictation for additional detail.
[2024-01-27 15:00] VITALS: BP 116/59
[2024-01-27] MEDS: TYLENOL 650 MG PO (15:40)
[2024-01-27] MEDS: LOVENOX SC (18:17)
[2024-01-27] MEDS: STERILE WATER FOR INJECTION 10 ML IV (22:15)
[2024-01-27] MEDS: ROCEPHIN 1000 MG IV (22:16)
[2024-01-27 23:47] VITALS: BP 104/64
[2024-01-28] MEDS: NSS 1000 IV (04:48)
[2024-01-28 07:00] VITALS: BP 99/60
--- NOTE | 2024-01-28 07:18 | W.PN.PUL.V3 ---
Today's Communication / Plan
-
Chest x-ray without significant change-clinically much improved
Outpatient antibiotics
Outpatient chest x-ray in approximately 2 weeks with pulmonary follow-up
Assessment
-
Assessment: 23-year-old female non-smoker with a PMHx of scoliosis + Gilbert's syndrome who presents with cough + fever. She developed symptoms while overseas in [facility], with symptoms started about 10 days ago with fever and then cough with green
phlegm production. She went to an ER in [facility] and was given antibiotics and discharged home with cefuroxime which she was on her second day when she arrived here to [place]. She has been afebrile here since hospital admission and imaging is
consistent with a lingular pneumonia as well as patchy opacities in the left lower lobe. She is being managed on the floor on antibiotics and now pulmonary consulted for additional recommendations.
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
Impression:
#Community-acquired pneumonia involving left lung (lingula + medial left lower lobe)
#Acute cough due to above
#Acute anemia
#Transaminitis with AST: 76 + ALT: 113
Leukopenia
Plan:
Respiratory status relatively stable
Supplemental oxygen as needed-currently on room air
Nebulizers if needed-currently not bronchospastic
Chest x-ray and CT chest reviewed-consistent with community-acquired pneumonia
Mucolytic's
Antitussives if needed
Chest x-ray 01/28/2024-no change in left-sided pneumonia
Cultures reviewed
Urine streptococcal and Legionella antigens negative
Sputum culture-moderate WBCs, few gram-positive cocci and rare gram-positive cocci
Empiric antibiotics
Follow chest x-ray
Monitor leukopenia
Follow hemoglobin-currently 10.8
Monitor LFTs
DVT prophylaxis-low molecular weight heparin
Nutrition
Early mobilization
Reviewed with mother at the bedside-parents originally from [facility], patient born in [place], has [place] passport
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
Outpatient pulmonary [id number] need CT chest for-6 weeks to ensure pneumonia resolution
Data:
CT chest without contrast 01/26/2024: Findings compatible with pneumonia involving the lingula of the left upper lobe and the left lower lobe; Minimal left pleural effusion.
Subjective Data
-
Date of Service:
Date of Service: January 28, 2024
Chief Complaint: Pulmonary Follow Up and Dyspnea Follow Up
Subjective:
Overall still feels weak but improved, no shortness of breath, less dyspnea on exertion, no chest pain, productive cough or abdominal pain
Review of Systems
General: Other (Per HPI)
Objective Data
Data Reviewed
Vital Signs / I&O:
Vital Signs
Temp Pulse Resp BP Pulse Ox
98 F 53 18 104/64 99
01/27/24 23:47 01/27/24 23:47 01/27/24 23:47 01/27/24 23:47 01/27/24 23:47
Intake and Output
01/27/24 01/28/24 01/29/24
06:59 06:59 06:59
Intake Total 3900 / 3900 2280 / 2280
Balance 3900 / 3900 2280 / 2280
SaO2: 99
Physical Exam
General: Respiratory Distress (n) and Comfortable
HEENT: Normocephalic, Anicteric and Moist Mucous Membranes
Cardiovascular: Regular Rhythm
Respiratory: Wheeze (n), Crackles, Rhonchi (n), Non-Labored Respirations, Accessory Resp Muscle Use (n) and Stridor (n)
GI: Soft, Non Distended and Non Tender
Neurology: Awake, Alert and No Motor Deficits
Skin: Warm, Good Color, Cyanosis, Jaundice (n) and Rash
Labs/Micro/Reports
Lab Data
01/27/24 06:42
01/27/24 06:42
Microbiology
01/25/24 22:36 Blood/Venous Blood Culture - Preliminary
No Growth in 48 hours- Final report to follow
01/26/24 18:33 Sputum Respiratory Culture - Preliminary
Usual Respiratory Diana
01/26/24 18:33 Sputum Gram Stain - Preliminary
01/26/24 00:46 Sputum Respiratory Culture - Preliminary
Usual Respiratory Diana
01/26/24 00:46 Sputum Gram Stain - Preliminary
01/25/24 19:44 Urine Legionella Urinary Antigen - Final
Negative for Legionella pneumophila Serogroup 1 antigen.
A negative result does not rule out the possiblity of
Legionella infection due to other serogroups or species of
Legionella. Clinical correlation is recommended.
01/25/24 19:44 Urine Streptococcus pneumoniae Antigen (M - Final
Negative for Streptococcus pneumoniae antigen.
A negative result does not exclude infection with
Streptococcus pneumoniae. Clinical correlation is
recommended.
01/25/24 19:46 Nasal Swab Influenza Types A & B (JETHRO) - Final
Negative for Influenza A & B, NAAT
Negative results must be combined with clinical observations
and patient history.
Nucleic Acid Amplification test (NAAT)performed on the
[employer] platform.
[2024-01-28] MEDS: VIBRAMYCIN 100 MG PO (08:14)
[2024-01-28] MEDS: MUCINEX 600 MG PO (08:17)
[2024-01-28] MEDS: TESSALON PERLES 200 MG PO (08:17)
--- NOTE | 2024-01-28 10:18 | W.PN.HOSP.TC ---
Today's Communication/Plan
-
Discharge after chest x ray
Stop IVF
Move IV Rocephin to earlier time before discharge
Assessment / Plan
Assessment / Plan
Physical Exam
General: Comfortable and Conversant
HEENT: Anicteric and Moist mucous membranes
Respiratory: no wheezes or crackles, more air both sides.
Cardiac: S1/S2 and Regular Rhythm
GI: Soft and Non Tender
Musculoskeletal: No Clubbing, No Cyanosis and No Edema
Skin: Warm and Dry
Neuro: Awake, Alert, Oriented and Nonfocal/grossly intact
Psych: Calm
Pneumonia, community-acquired
-Failed outpatient azithromycin
- sputum culture respiratory ainsley
blood culture no growth
CT chest c/w pneumonia in the lingula of the left upper lobe and the left lower lobe, small pleural effusion
-s/p ceftriaxone and doxycycline, dc on oral tablets
-Continue Mucinex, Tessalon
- consulted pulmonary and ID, appreciate input
# Elevated liver enzymes
LFT are coming down
No jaundice
# Loss of appetite, nausea
Added PRN Zofran
DVT proph: Lovenox
Code Status: Full Code
Total discharge time spent to see the patient, examine the patient on the floor, review data and lab results, discuss discharge plan with patient, mother, nursing staff around 67 minutes
Anticipated Discharge: Today
Subjective/Interval History
-
Date of Service: January 28, 2024
She feels better
Objective Data
-
Vital Signs:
Vital Signs
Temp Pulse Resp BP Pulse Ox
98.6 F 57 17 99/60 99
01/28/24 07:00 01/28/24 07:00 01/28/24 07:00 01/28/24 07:00 01/28/24 07:18
I&O
01/27/24 01/28/24 01/29/24
06:59 06:59 06:59
Intake Total 3900 / 3900 2280 / 2280
Balance 3900 / 3900 2280 / 2280
[2024-01-28] MEDS: ROCEPHIN 1000 MG IV (11:15)
[2024-01-28] MEDS: STERILE WATER FOR INJECTION 10 ML IV (11:15)
[2024-01-28] MEDS: FLUSH (NSS) 2 FLUSH IV (11:19)
[2024-01-28 12:41] VITALS: BP 110/70
--- NOTE | 2024-01-28 13:12 | W.DCSUMMARY ---
Discharge Summary
Discharge Data
Date of Admission: 01/25/24
Date of Discharge: 01/28/24
-
Pending Results: No
Hospital Course
23 years old female with history of Gilbert's syndrome presented to the hospital with cough and fever. Patient was recently traveling abroad and had significant physical activity including hiking. Patient saw a physician while abroad and was
started on azithromycin. Despite several days of antibiotic, she continued to feel unwell with fever and cough. In the emergency room, she had chest radiography that showed left lower lobe pneumonia. Patient was evaluated by pulmonary doctor and
infectious diseases doctor. She was started on intravenous Rocephin with doxycycline. Scan of the chest showed lingual and medial left lower lobe pneumonia. Patient started to improve with resolution of fever. Sputum and blood culture did not
show any growth. She did not have recurrent fever, she did not have hypoxia. Repeat chest radiography showed stable pneumonia with no worsening. She started to feel better with less cough. No shortness of breath. She remained hemodynamically
stable and was discharged home to finish course of antibiotic at home. Patient was advised to follow-up with her primary care doctor and pulmonary doctor. She was given a script to repeat chest radiography in 1-2 weeks.
Discharge Plan
-
Patient Disposition: Home (Routine Discharge)
Discharge Diagnosis/Procedures: Left lower lobe pneumonia
You were seen by pulmonary doctor and ID doctor. You can take flu shot in one week.
Condition: Fair
Diet: As tolerated
Referrals:
Teodoro Russell CRNP [Family Provider] -
Jovani Hernandez MD [Active] - in two weeks (full PFTs to be done on day of office visit if available)
Prescriptions:
New
doxycycline hyclate 100 mg Capsule
100 mg PO Q12 Qty: 7 0RF
benzonatate 100 mg Capsule
200 mg PO TIDPRN PRN (Reason: cough) Qty: 20 0RF
guaifenesin 600 mg Tablet Extended Release 12hr
600 mg PO Q12 Qty: 20 0RF
cefuroxime axetil 500 mg tablet
500 mg PO BID Qty: 7 0RF
Continued
Algopyrin Favio tablet
500 mg PO DAILYPRN PRN (Reason: fever)
Patient Comments:
01/25/2024: Metamizol-Natrium. Pt recieved while over in [facility]
Ambroxol-Hidroklorid tablet
30 mg PO TID
Patient Comments:
01/25/2024: Pt recieved while over in [facility]
Discontinued
cefuroxime axetil 500 mg Tablet
500 mg PO BID
Patient Comments:
01/25/2024: Brand name Del. Pt recieved while over in [facility]
Discharge Orders:
Discharge Patient (As Directed); Ordered 01/28/24
Ordered By: Clarissa Samuels
Discharge Date and Time
Print Language: LATVIAN
--- NOTE | 2024-01-28 15:53 | CM ---
met with pattient who is stable for dc home with no needs.
== END 2024-01-28 13:17 | disposition home or self-care (01) ==
LOC: 3 WEST ACU 23:20
PROVIDERS: Physician Assistant Medical; Student in an Organized Health Care Education/Training Program; ADMITTING PHYSICIAN Hospitalist; ATTENDING PHYSICIAN Internal Medicine; CONSULT PHYSICIAN Internal Medicine Critical Care Medicine; EMERGENCY PHYSICIAN Emergency Medicine; FAMILY PHYSICIAN Nurse Practitioner Family; OTHER PHYSICIAN Internal Medicine Infectious Disease
DX: J18.9 Pneumonia, unspecified organism (principal); R50.9 Fever, unspecified; R09.81 Nasal congestion; R63.0 Anorexia; R05.1 Acute cough; R00.0 Tachycardia, unspecified; R06.82 Tachypnea, not elsewhere classified; E80.4 Gilbert syndrome; R11.2 Nausea with vomiting, unspecified; J90 Pleural effusion, not elsewhere classified; D64.9 Anemia, unspecified; R74.01 Elevation of levels of liver transaminase levels; M41.9 Scoliosis, unspecified; R59.0 Localized enlarged lymph nodes; R74.8 Abnormal levels of other serum enzymes; D72.819 Decreased white blood cell count, unspecified; Z11.52 Encounter for screening for COVID-19; Z83.3 Family history of diabetes mellitus
CPT/HCPCS: 71046; 71250; 80053; 81003; 81015; 82248; 83605; 83690; 83735; 84100; 84703; 85025; 85027; 87040; 87070; 87205; 87449; 87502; 87811; 87899; 93005; 96361; 96365; 96375; 99285; G0378

== ENCOUNTER → 2024-02-02 10:26 | Outpatient (REF) | payer OTHER, SELFPAY | LOC: HWRAD 10:26 | PROVIDERS: ATTENDING PHYSICIAN Nurse Practitioner Family | DX: D64.9 Anemia, unspecified (principal); D72.819 Decreased white blood cell count, unspecified; J18.9 Pneumonia, unspecified organism | CPT/HCPCS: 71046 ==

== ENCOUNTER → 2024-02-15 10:37 | Outpatient (REF) | payer OTHER, SELFPAY ==
[2024-02-15 13:50] LABS: Hepatitis B Surface Antibody Positive
[2024-02-17 07:43] LABS: Quantiferon TB Gold Plus Negative (Negative)
== END ==
LOC: OHS 10:37
PROVIDERS: ATTENDING PHYSICIAN Nurse Practitioner Family
DX: Z23 Encounter for immunization (principal)
CPT/HCPCS: 36415; 86480; 86706; 86787

== ENCOUNTER → 2024-03-01 07:30 | Outpatient (REF) | payer OTHER, SELFPAY | LOC: HWRAD 07:30 | PROVIDERS: ATTENDING PHYSICIAN Nurse Practitioner Family; FAMILY PHYSICIAN Nurse Practitioner Family | DX: Z87.01 Personal history of pneumonia (recurrent) (principal) | CPT/HCPCS: 71250 ==

== ENCOUNTER 2024-04-19 11:05 | Emergency (ER) | payer OTHER, SELFPAY ==
[2024-04-19 11:09] VITALS: BP 143/95
--- NOTE | 2024-04-19 12:34 | ED.GENMED ---
History of Present Illness
General
Chief Complaint: Jaw Pain
Source: patient
Exam Limitations: none
Time Seen by Provider: 04/19/24 11:37
Nursing documentation reviewed up to this point in time: agreed with
History of Present Illness
History of Present Illness:
Patient is a 23-year-old female who presents to the ER complaining of right sided jaw pain. She does have TMJ normally has cracking of the jaw but last night while eating felt a very intense crack in her right jaw while chewing and now has cracking
with opening and closing and has discomfort to the right side of her jaw. She feels that her jaw' is a little off on the right side.' She is able to open mouth and eat and drink.
Review of Systems
Review of Systems
Allergies reviewed?: Yes
All Other Systems: ROS reviewed and negative except as documented in HPI and ROS
Constitutional: Reports no symptoms
EENT: Reports other (right sided jaw pain )
Respiratory: Reports no symptoms; Denies trouble breathing
Cardiac: Reports no symptoms
ABD/GI: Reports no symptoms
Musculoskeletal: Reports no symptoms
Skin: Reports no symptoms
Neurological: Reports no symptoms
Psychiatric: Reports no symptoms
Phy Exam
General Physical Exam
General Presentation: no apparent distress
General age: appears stated age
General Skin: warm and dry
General Habitus: normal
General Mental: alert
General Hydration: appears well hydrated
ENT Exam
ENT Exam: other (No swelling to jaw able to open and close mouth fully normal jaw strength, teeth are properly aligned )
Neurological Exam
Neurological Exam: alert and oriented x3
Musculoskeletal Exam
Musculoskeletal Exam: full ROM
Skin Exam
Skin Exam: normal color and warm/dry
Psychiatric Exam
Psychiatric Exam: normal mood/affect
Course
Orders/Labs/Results
Orders:
Orders
04/19/24 12:41
Mandible/Jaw Complete [CR Jaw/mandible Comp Min 4 Vw*] Urgent
Comment:
Reason For Exam: right sided crack/pain
04/19/24 13:54
Vital Signs- Treatment ONCE
Frequency: Once
Vital Signs
Initial and Last Documented VS:
Initial Vital Signs
Temp Pulse Resp BP Pulse Ox
97.9 F 80 16 143/95 100
04/19/24 11:09 04/19/24 11:09 04/19/24 11:09 04/19/24 11:09 04/19/24 11:09
Last Documented Vital Signs
Temp Pulse Resp BP Pulse Ox
97.9 F 80 16 143/95 100
04/19/24 11:09 04/19/24 11:09 04/19/24 11:09 04/19/24 11:09 04/19/24 11:09
MDM/Problems Addressed
Differential Diagnosis Includes:
Not limited to dislocation less likely jaw fracture, TMJ
MDM/Problems Addressed:
No acute abnormalities on x-ray patient does have known TMJ likely exacerbation. Will discharge on soft foods with outpatient follow-up with PCP ENT and Motrin as needed
*Radiology
Radiology exam reviewed: radiology read reviewed
*Pulse Oximetry
Patient hypoxic: no
*Critical Care Note
Total Time (30-74mins, 75-104mins- exclusive of procedures): Not Applicable
ED Attending Note
-
Portions of this chart may have been created with voice recognition software.� Occasional wrong word or��sound alike� substitutions may have occurred due to the inherent limitations of voice recognition software.
Discharge Plan
Departure
Patient Disposition: Home (Routine Discharge)
Date of Disposition: 04/19/24
Time of Disposition: 13:54
Patient with high blood pressure during this ER visit?: Yes
Condition: Fair
Covid-19: Not Applicable
Discharge Problem:
TMJ (temporomandibular joint disorder)
Instructions: Temporomandibular Joint (TMJ) Disorders (DC)
Prescriptions:
No Action
Algopyrin Favio tablet
500 mg PO DAILYPRN PRN (Reason: fever)
Patient Comments:
01/25/2024: Metamizol-Natrium. Pt recieved while over in [place]
Ambroxol-Hidroklorid tablet
30 mg PO TID
Patient Comments:
01/25/2024: Pt recieved while over in [place]
doxycycline hyclate 100 mg Capsule
100 mg PO Q12 Qty: 7 0RF
benzonatate 100 mg Capsule
200 mg PO TIDPRN PRN (Reason: cough) Qty: 20 0RF
guaifenesin 600 mg Tablet Extended Release 12hr
600 mg PO Q12 Qty: 20 0RF
cefuroxime axetil 500 mg tablet
500 mg PO BID Qty: 7 0RF
Referrals:
Teodoro Russell CRNP [Family Provider] -
Elpidio Dejesus MD [Active] -
Activity Restrictions/Additional Instructions:
As discussed your x-rays were normal. Soft foods until seen and reevaluated. Please call ENT to make an appointment soon as possible in addition he may follow-up with family doctor. You may take ibuprofen or Tylenol for pain return if any
worsening of symptoms.
Interventions
Interventions:
*Risk Screen - Suicide Last Done: 04/19/24 11:09
*General Assessment Last Done: 04/19/24 11:09
*Neglect/Abuse Screening Last Done: 04/19/24 11:09
*ED COVID-19 Vaccine History Last Done: 04/19/24 11:09
ED-EENT Assessment Last Done: 04/19/24 11:36
ED- Cardiac Assessment Last Done: 04/19/24 11:36
Discharge Date and Time
Print Language: BARBADIAN
[2024-04-19 14:14] VITALS: BP 99/61
== END 2024-04-19 14:15 | disposition home or self-care (01) ==
LOC: EMR 11:05
PROVIDERS: EMERGENCY PHYSICIAN Emergency Medicine; FAMILY PHYSICIAN Nurse Practitioner Family
DX: M26.601 Right temporomandibular joint disorder, unspecified (principal)
CPT/HCPCS: 99283; 70110

== ENCOUNTER → 2024-05-09 09:06 | Outpatient (REF) | payer SELFPAY | LOC: RCS 09:06 | PROVIDERS: ATTENDING PHYSICIAN Nurse Practitioner Family | DX: R00.2 Palpitations (principal) | CPT/HCPCS: 93225; 93226 ==

== ENCOUNTER → 2024-07-02 11:34 | Outpatient (REF) | payer OTHER, SELFPAY | LOC: RAD 11:34 | PROVIDERS: ATTENDING PHYSICIAN Nurse Practitioner Family | DX: R10.31 Right lower quadrant pain (principal) | CPT/HCPCS: 36415; 74177; 80053; 85025; Q9967 ==

== ENCOUNTER 2024-07-29 12:16 | Emergency (ER) | payer OTHER, SELFPAY ==
[2024-07-29 12:18] VITALS: BP 133/85
--- NOTE | 2024-07-29 13:03 | ED.GENMED ---
History of Present Illness
General
Chief Complaint: Skin Problem
Source: patient
Exam Limitations: none
Time Seen by Provider: 07/29/24 13:02
Nursing documentation reviewed up to this point in time: agreed with
History of Present Illness
History of Present Illness:
23 y/o female with past medical history of Gilbert's syndrome presents emergency department today with concerns of a left posterior swollen lymph node. Patient reports that she started feeling pain in her neck around 3 days ago and states that her
mom and her were palpating the area and noticed a swollen lump. Patient states that the pain is brought on when she turns her neck. She has not tried anything for the pain. She denies any sore throat or trouble swallowing. She denies any cold or
flulike symptoms, denies any runny nose, she denies pain in her ears. 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 Patient denies shortness of breath or chest pain. Patient denies any fevers or
chills. Patient never had this before. Patient denies any trauma to the head or neck. Patient denies any rashes.
Review of Systems
Review of Systems
All Other Systems: ROS reviewed and negative except as documented in HPI and ROS
Phy Exam
Physical Exam
Physical Exam:
General: Patient is well appearing and in no acute distress; non-toxic
Skin: Warm and dry, no rashes or lesions
Head: Normocephalic, atraumatic
Eyes: Sclera non-icteric. EOMs intact.
Ears: TMs intact bilaterally with no erythema, no bulging, external ear canals intact
Mouth: Uvula midline, no pharyngeal erythema, no tonsillar hypertrophy
Neck: Left-sided posterior cervical lymphadenopathy with tenderness to palpation
Cardiac: Regular rate and rhythm, no murmurs
Pulm: Normal respiratory effort, no wheezes, rales, or rhonchi
Neuro: CN II-XII intact, no focal neurologic deficits.
Psychiatric: Appropriate mood and affect.
Course
Orders/Labs/Results
Orders:
Orders
07/29/24 13:21
COVID-19 Antigen Urgent
Source: Nasal Swab
Complete Blood Count/With Diff Urgent
Comprehensive Metabolic Panel Urgent
Monotest Urgent
Influenza A+B Rapid Molecular Urgent
ANAY Source: Nasal Swab
Specimen Description:
Abnormal Lab Results
07/29/24
13:21
WBC 3.8 L 10^3/uL
(4.8-10.8)
BUN 18 H mg/dl
(7-17)
Total Bilirubin 2.4 H mg/dl
(0.2-1.3)
07/29/24 13:21
07/29/24 13:21
Vital Signs
Initial and Last Documented VS:
Initial Vital Signs
Temp Pulse Resp BP Pulse Ox
98 F 82 18 133/85 100
07/29/24 12:18 07/29/24 12:18 07/29/24 12:18 07/29/24 12:18 07/29/24 12:18
Last Documented Vital Signs
Temp Pulse Resp BP Pulse Ox
98 F 82 18 133/85 100
07/29/24 12:18 07/29/24 12:18 07/29/24 12:18 07/29/24 12:18 07/29/24 12:18
MDM/Problems Addressed
Differential Diagnosis Includes:
Differentials include infectious mononucleosis, viral syndrome, sebaceous cyst
MDM/Problems Addressed:
23-year-old female presents emergency department today with concerns of a swollen posterior cervical lymph node. Patient states has been going on for the past 3 days and she first noticed it when she started having pain with turning her neck. She
has no associated sore throat or ear pain, no flulike symptoms. On exam patient is well-appearing no acute distress she is afebrile, and she has a mobile tender lymph node noted in the left posterior cervical chain. No overlying erythema. Patient
negative for mononucleosis, COVID, influenza. White blood cell count lower today, possible lymphadenopathy secondary to viral syndrome. Patient will be treated with anti-inflammatories and conservative management at home. Advised to continue to
monitor her symptoms and get further imaging if this persists multiple weeks. 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
Chronic conditions affecting care:
gilbert's syndrome
*Pulse Oximetry
Patient hypoxic: no
*Critical Care Note
Total Time (30-74mins, 75-104mins- exclusive of procedures): Not Applicable
Data Reviewed
Review of Other/Old Records Reveals: Records
Source: patient and records
ED Attending Note
-
Portions of this chart may have been created with voice recognition software.� Occasional wrong word or��sound alike� substitutions may have occurred due to the inherent limitations of voice recognition software.
Discharge Plan
Departure
Patient Disposition: Home (Routine Discharge)
Date of Disposition: 07/29/24
Time of Disposition: 14:47
Patient with high blood pressure during this ER visit?: Yes
Condition: Good
Discharge Problem:
Posterior cervical lymphadenopathy
Instructions: Swollen lymph nodes in adults, BLOOD PRESSURE
Prescriptions:
No Action
Algopyrin Favio tablet
500 mg PO DAILYPRN PRN (Reason: fever)
Patient Comments:
01/25/2024: Metamizol-Natrium. Pt recieved while over in [place]
Ambroxol-Hidroklorid tablet
30 mg PO TID
Patient Comments:
01/25/2024: Pt recieved while over in [place]
doxycycline hyclate 100 mg Capsule
100 mg PO Q12 Qty: 7 0RF
benzonatate 100 mg Capsule
200 mg PO TIDPRN PRN (Reason: cough) Qty: 20 0RF
guaifenesin 600 mg Tablet Extended Release 12hr
600 mg PO Q12 Qty: 20 0RF
cefuroxime axetil 500 mg tablet
500 mg PO BID Qty: 7 0RF
Referrals:
Teodoro Russell CRNP [Family Provider] -
Activity Restrictions/Additional Instructions:
Your blood work was unremarkable. He tested negative for mono, COVID, and flu.
For next 3 days, I recommend taking ibuprofen 600 mg every 6 hours as needed for pain. I also recommend using a heating pad over the area.
Please continue to monitor your symptoms. If your lymph node persists over the next few weeks, ultrasound may be needed for further evaluation.
PLEASE RETURN TO EMERGENCY DEPARTMENT TODAY SHOULD YOU DEVELOP AN ACUTE WORSENING OF YOUR SYMPTOMS, DIFFICULTY SWALLOWING, SHORTNESS OF BREATH, CHEST PAIN, FEVERS OR CHILLS, ANY OTHER SIGNS OR SYMPTOMS WORRISOME TO YOU.
Interventions
Interventions:
*Risk Screen - Suicide Last Done: 07/29/24 12:22
*General Assessment Last Done: 07/29/24 15:10
*Neglect/Abuse Screening Last Done: 07/29/24 12:22
*ED- Fall Risk Assessment Last Done: 07/29/24 14:07
*ED COVID-19 Vaccine History Last Done: 07/29/24 14:07
*Nursing Disposition Last Done: 07/29/24 15:10
ED-Skin Assessment Last Done: 07/29/24 15:12
Discharge Date and Time
Discharge Date/Time: 07/29/24 15:12
Print Language: FRISIAN
[2024-07-29 13:41] LABS: % Basophils 0.5 % (0-2); % Eosinophils 2.1 % (0-6); % Immature Granulocytes 0.3 % (0-0.5); % Lymphocytes 32.5 % (20.5-51.1); % Monocytes 8.3 % (1.7-9.3); % Neutrophils 56.3 % (42.2-75.2); Absolute Eosinophils 0.1 10^3/uL (0-0.7); Absolute Lymphocytes 1.2 10^3/uL (1.2-3.4); Absolute Monocytes 0.3 10^3/uL (0.1-0.6); Absolute Neutrophils 2.1 10^3/uL (1.4-6.5); Hematocrit 40.5 % (37.0-47.0); Hemoglobin 13.7 g/dL (12.0-16.0); Mean Corp Hgb Conc. 33.8 g/dL (33.0-37.0); Mean Corpuscular Hgb 29.8 pg (27.0-31.0); Mean Platelet Volume 9.3 fL (7.4-10.4); Nucleated Red Blood Cells % 0 %; Platelet Count 243 10^3/uL (130-400); White Blood Cell Count 3.8 10^3/uL (4.8-10.8)
[2024-07-29 13:55] LABS: ALT (SGPT) 28 U/L (0-35); AST (SGOT) 25 U/L (14-36); Albumin 4.7 g/dl (3.5-5.0); Alkaline Phosphatase 56 U/L (38-126); Blood Urea Nitrogen 18 mg/dl (7-17); Calcium 9.4 mg/dl (8.4-10.2); Carbon Dioxide 29 mmol/L (22-30); Chloride 105 mmol/L (98-107); Glucose 81 mg/dl (70-99); Potassium 4.6 mmol/L (3.5-5.1); Sodium 142 mmol/L (135-145); Total Bilirubin 2.4 mg/dl (0.2-1.3); Total Protein 7.5 g/dl (6.3-8.2); eGFR > 60.00
[2024-07-29 14:24] LABS: COVID-19 Antigen Negative (Negative)
[2024-07-29 14:25] LABS: Monotest Negative (Negative)
== END 2024-07-29 15:12 | disposition home or self-care (01) ==
LOC: EMR 12:16
PROVIDERS: Physician Assistant; EMERGENCY PHYSICIAN Student in an Organized Health Care Education/Training Program; FAMILY PHYSICIAN Nurse Practitioner Family
DX: M54.2 Cervicalgia (principal); R59.0 Localized enlarged lymph nodes; Z11.52 Encounter for screening for COVID-19; R03.0 Elevated blood-pressure reading, without diagnosis of hypertension; E80.4 Gilbert syndrome; Z87.01 Personal history of pneumonia (recurrent)
CPT/HCPCS: 99283; 80053; 85025; 86308; 87502; 87811

== ENCOUNTER → 2024-09-27 07:00 | Outpatient (REF) | payer OTHER, SELFPAY | LOC: RAD 07:00 | PROVIDERS: ATTENDING PHYSICIAN Nurse Practitioner Family | DX: R59.1 Generalized enlarged lymph nodes (principal) | CPT/HCPCS: 76536 ==

== ENCOUNTER 2024-10-08 06:25 | Emergency (ER) | payer OTHER, SELFPAY ==
[2024-10-08 06:35] VITALS: BP 114/78
--- NOTE | 2024-10-08 06:58 | ED.GENMED ---
History of Present Illness
General
Chief Complaint: Fainting Sensation
Source: patient and family (mother)
Time Seen by Provider: 10/08/24 06:42
History of Present Illness
History of Present Illness:
23-year-old female presents the emergency room for evaluation of feeling a sensation in her neck and lightheadedness. She thought she might pass out. Symptoms occurred when she was sleeping. She has been able to get up and walk around. She
denies any actual chest pain, shortness of breath, diaphoresis. Exertion such as walking from the car to the emergency room has not made anything worse. She denies any new medications. No recent travel.
Phy Exam
Physical Exam
Physical Exam:
General: Awake, Alert, Oriented X3. No acute distress.
Vitals: unremarkable
Head: Atraumatic
Eyes: Pupils equal, EOMI
Throat: Airway intact, no exudates
Neck: Trachea midline
Lungs: Clear and equal b/l
Heart: Regular rate, no murmurs
Abd: Soft, Nontender, No pulsatile mass
Neuro: Nonfocal
Skin: Warm, dry, no rash
Extremities: pulses equal b/l, no edema
Course
Orders/Labs/Results
Orders:
Orders
10/08/24 06:56
Electrocardiogram (*1) Urgent
Reason for Study: Vertigo / Dizzy
Cardiac Monitoring- Treatment ONCE
EKG- Treatment ONCE
Test Result ONCE
10/08/24 07:22
Basic Metabolic Panel Urgent
Complete Blood Count/No Diff Urgent
HCG, Serum Qualitative Screen Urgent
Abnormal Lab Results
10/08/24
07:22
WBC 4.5 L 10^3/uL
(4.8-10.8)
Chloride 108 H mmol/L
(98-107)
Glucose 101 H mg/dl
(70-99)
10/08/24 07:22
10/08/24 07:22
Vital Signs
Initial and Last Documented VS:
Initial Vital Signs
Temp Pulse Resp BP Pulse Ox
98.5 F 83 14 114/78 100
10/08/24 06:35 10/08/24 06:35 10/08/24 06:35 10/08/24 06:35 10/08/24 06:35
Last Documented Vital Signs
Temp Pulse Resp BP Pulse Ox
98.5 F 72 16 96/68 98
10/08/24 06:35 10/08/24 08:45 10/08/24 08:45 10/08/24 08:00 10/08/24 08:45
MDM/Problems Addressed
Differential Diagnosis Includes:
Benign positional vertigo, near syncope, anxiety
MDM/Problems Addressed:
Workup here reveals no acute abnormalities. Patient ambulated without difficulty. EKG is unremarkable. She stable for discharge
*Pulse Oximetry
Patient hypoxic: no
*EKG
Interpreted by ED Provider?: Yes
Heart Rate: 66
Rate: normal
Rhythm: sinus
[place]: normal axis
Interval: normal interval
QRS Pattern: normal QRS
Ischemia: no ischemia
*Redrawer Interpretation
Rate: normal
Interpretation: normal
Rhythm: sinus
*Critical Care Note
Total Time (30-74mins, 75-104mins- exclusive of procedures): Not Applicable
ED Attending Note
-
Portions of this chart may have been created with voice recognition software.� Occasional wrong word or��sound alike� substitutions may have occurred due to the inherent limitations of voice recognition software.
Discharge Plan
Departure
Patient Disposition: Home (Routine Discharge)
Date of Disposition: 10/08/24
Time of Disposition: 09:15
Patient with high blood pressure during this ER visit?: No
Condition: Good
Discharge Problem:
Lightheaded
Instructions: Dizziness in adults - ED discharge instructions
Prescriptions:
No Action
Algopyrin Favio tablet
500 mg PO DAILYPRN PRN (Reason: fever)
Patient Comments:
01/25/2024: Metamizol-Natrium. Pt recieved while over in [facility]
Ambroxol-Hidroklorid tablet
30 mg PO TID
Patient Comments:
01/25/2024: Pt recieved while over in [facility]
doxycycline hyclate 100 mg Capsule
100 mg PO Q12 Qty: 7 0RF
benzonatate 100 mg Capsule
200 mg PO TIDPRN PRN (Reason: cough) Qty: 20 0RF
guaifenesin 600 mg Tablet Extended Release 12hr
600 mg PO Q12 Qty: 20 0RF
cefuroxime axetil 500 mg tablet
500 mg PO BID Qty: 7 0RF
Referrals:
Teodoro Russell CRNP [Family Provider, Family Practice]
Interventions
Interventions:
*Risk Screen - Suicide Last Done: 10/08/24 06:35
*General Assessment Last Done: 10/08/24 09:29
*Neglect/Abuse Screening Last Done: 10/08/24 09:29
*ED- Fall Risk Assessment Last Done: 10/08/24 09:29
*ED COVID-19 Vaccine History Last Done: 10/08/24 09:29
*Nursing Disposition Last Done: 10/08/24 09:29
ED- Cardiac Assessment Last Done: 10/08/24 09:28
ED- Neurological Assessment Last Done: 10/08/24 09:28
Discharge Date and Time
Discharge Date/Time: 10/08/24 09:30
Print Language: HUNGARIAN
[2024-10-08 07:15] VITALS: BP 114/69
[2024-10-08 07:36] LABS: Hematocrit 37.6 % (37.0-47.0); Hemoglobin 12.8 g/dL (12.0-16.0); Mean Corpuscular Hgb 29.9 pg (27.0-31.0); Mean Corpuscular Volume 87.9 fL (81.0-99.0); Mean Platelet Volume 9.4 fL (7.4-10.4); Platelet Count 225 10^3/uL (130-400); Red Blood Cell Count 4.28 10^6/uL (4.20-5.40); Red Cell Dist. Width 12.1 % (11.5-14.5); White Blood Cell Count 4.5 10^3/uL (4.8-10.8)
[2024-10-08 07:45] LABS: HCG, Serum Qualitative Screen Negative
[2024-10-08 07:49] LABS: Blood Urea Nitrogen 15 mg/dl (7-17); Calcium 9.3 mg/dl (8.4-10.2); Carbon Dioxide 27 mmol/L (22-30); Chloride 108 mmol/L (98-107); Glucose 101 mg/dl (70-99); Potassium 3.9 mmol/L (3.5-5.1); Sodium 141 mmol/L (135-145); eGFR > 60.00
[2024-10-08 08:00] VITALS: BP 96/68
== END 2024-10-08 09:30 | disposition home or self-care (01) ==
LOC: EMR 06:25
PROVIDERS: EMERGENCY PHYSICIAN Emergency Medicine; FAMILY PHYSICIAN Nurse Practitioner Family
DX: R42 Dizziness and giddiness (principal); R20.8 Other disturbances of skin sensation
CPT/HCPCS: 99283; 80048; 84703; 85027; 93005

== ENCOUNTER 2024-11-02 09:39 | Emergency (ER) | payer SELFPAY ==
[2024-11-02 09:44] VITALS: BP 123/76
--- NOTE | 2024-11-02 10:19 | ED.GENMED ---
History of Present Illness
General
Chief Complaint: Head Injury
Source: patient
Time Seen by Provider: 11/02/24 10:04
History of Present Illness
History of Present Illness:
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
immediately placed ice over the area but since that time has had mild headache. Patient states that late last night and early this morning she felt that her pupils were different size and was concern for possible intracranial bleed which is why she
decided to come to the ER. There was no loss of consciousness, vomiting, visual changes, focal weakness or numbness. Patient denies any anticoagulant use. She did not take anything for her headache.
Past History
Past History
ED Past Medical History: None
ED Past Surgical History: None
Social History
Tobacco: Non-smoker
Alcohol: None
Drug: None
Personal: Single
Living: with family
Employment: Employed
Review of Systems
Review of Systems
All Other Systems: ROS reviewed and negative except as documented in HPI and ROS
Phy Exam
Physical Exam
Physical Exam:
GENERAL: Alert , in no apparent distress
EYE: conjunctiva clear, Pupils 5 mm bilateral, PERRL, EOMI
Head: Normocephalic atraumatic
NECK: Supple, no midline tenderness
ENT: mmm.
LUNGS: no acute respiratory distress
NEUROLOGICAL: Alert and oriented
SKIN: Warm and dry, skin intact.
MUSCULOSKELETAL: well perfused.
PSYCH: Normal and appropriate interaction.
Scores
Heart Failure Risk
Heart Failure Risk Score: Not Applicable
Heart Score for Chest Pain Patients
STEMI patient?: Not applicable
Withdrawal Assessment of Alcohol
Withdrawal Assessment Completed?: Not applicable
Course
Vital Signs
Initial and Last Documented VS:
Initial Vital Signs
Temp Pulse Resp BP Pulse Ox
98.5 F 79 16 123/76 99
11/02/24 09:44 11/02/24 09:44 11/02/24 09:44 11/02/24 09:44 11/02/24 09:44
Last Documented Vital Signs
Temp Pulse Resp BP Pulse Ox
98.5 F 79 16 123/76 99
11/02/24 09:44 11/02/24 09:44 11/02/24 09:44 11/02/24 09:44 11/02/24 10:19
MDM/Problems Addressed
Differential Diagnosis Includes:
- Contusion
- Concussion
- Tension headache
- Migraine headache
- ICH considered however given the mechanism thought to be significantly unlikely
- CN Palsy
- [place] Syndrome
MDM/Problems Addressed:
24-year-old female presenting to the ER for evaluation after accidentally hitting her head on a suture light while at work 2 days ago. No LOC, no vomiting, no visual changes. Based off exam I am most suspicious for contusion/concussion. Had
discussion about intracranial bleeding and risk versus benefit of CT scan and at this time patient opts to forego CT scan which I do think is reasonable given my lack of suspicion for intracranial bleeding based off of the mechanism. We discussed
return precautions to the ER. I advised patient take either Motrin or Tylenol for her headache as needed. She is otherwise stable for discharge home.
*Pulse Oximetry
SaO2: 99
Oxygen Mode of Delivery: Room air
Patient hypoxic: no
*Critical Care Note
Total Time (30-74mins, 75-104mins- exclusive of procedures): Not Applicable
Data Reviewed
Review of Other/Old Records Reveals: Records
ED Attending Note
-
Portions of this chart may have been created with voice recognition software.� Occasional wrong word or��sound alike� substitutions may have occurred due to the inherent limitations of voice recognition software.
Discharge Plan
Departure
Patient Disposition: Home (Routine Discharge)
Date of Disposition: 11/02/24
Time of Disposition: 10:19
Patient with high blood pressure during this ER visit?: No
Discharge Problem:
Head injury
Instructions: Concussion, Adult (DC)
Prescriptions:
No Action
Algopyrin Favio tablet
500 mg PO DAILYPRN PRN (Reason: fever)
Patient Comments:
01/25/2024: Metamizol-Natrium. Pt recieved while over in [facility]
Ambroxol-Hidroklorid tablet
30 mg PO TID
Patient Comments:
01/25/2024: Pt recieved while over in [facility]
doxycycline hyclate 100 mg Capsule
100 mg PO Q12 Qty: 7 0RF
benzonatate 100 mg Capsule
200 mg PO TIDPRN PRN (Reason: cough) Qty: 20 0RF
guaifenesin 600 mg Tablet Extended Release 12hr
600 mg PO Q12 Qty: 20 0RF
cefuroxime axetil 500 mg tablet
500 mg PO BID Qty: 7 0RF
Referrals:
Teodoro Russell CRNP [Family Provider, Family Practice]
Interventions
Interventions:
*Risk Screen - Suicide Last Done: 11/02/24 09:46
*General Assessment Last Done: 11/02/24 10:00
*Neglect/Abuse Screening Last Done: 11/02/24 09:46
*ED- Fall Risk Assessment Last Done: 11/02/24 10:00
*ED COVID-19 Vaccine History Last Done: 11/02/24 10:00
ED- Neurological Assessment Last Done: 11/02/24 10:00
ED-Skin Assessment Last Done: 11/02/24 10:00
Discharge Date and Time
Print Language: CROATIAN
== END 2024-11-02 10:42 | disposition home or self-care (01) ==
LOC: EMR 09:39
PROVIDERS: EMERGENCY PHYSICIAN Student in an Organized Health Care Education/Training Program; FAMILY PHYSICIAN Nurse Practitioner Family
DX: S09.90XA Unspecified injury of head, initial encounter (principal); R51.9 Headache, unspecified; W22.8XXA Striking against or struck by other objects, initial encounter; Y93.89 Activity, other specified; Y92.89 Other specified places as the place of occurrence of the external cause; Y99.0 Civilian activity done for income or pay
CPT/HCPCS: 99282

== ENCOUNTER → 2024-11-20 07:26 | Outpatient (REF) | payer OTHER, SELFPAY | LOC: HWRAD 07:26 | PROVIDERS: ATTENDING PHYSICIAN Student in an Organized Health Care Education/Training Program; FAMILY PHYSICIAN Nurse Practitioner Family | DX: R10.11 Right upper quadrant pain (principal) | CPT/HCPCS: 76700 ==

== ENCOUNTER → 2024-11-25 09:06 | Outpatient (REF) | payer OTHER, SELFPAY | LOC: RAD 09:06 | PROVIDERS: ATTENDING PHYSICIAN Physician Assistant Medical; FAMILY PHYSICIAN Nurse Practitioner Family | DX: R06.6 Hiccough (principal) | CPT/HCPCS: 71046; 74246 ==